=== PATIENT | female | born 1930 ===

== ENCOUNTER 2021-12-30 11:10 | Emergency (ER) | payer OTHER ==
[~2021-12-30] VITALS: Ht 147.3 cm; Wt 38.6 kg
[~2021-12-30 11:10] MED LIST: LIPO-FLAVONOID1 EACH PO
[2021-12-30] MEDS ORDERED: BENZONATATE150 MG PO (11:34)
[2021-12-30] MEDS ORDERED: COZAAR50 MG PO (11:34)
[2021-12-30] MEDS ORDERED: LEVOXYL100 MCG (11:34)
[2021-12-30] MEDS ORDERED: ZYRTEC10 MG PO (20:05)
[2021-12-30] MEDS ORDERED: TUSSIN DM MAX118 ML PO (20:05)
[2021-12-30] MEDS ORDERED: FLONASE16 GM NASAL (20:05)
[2021-12-30] MEDS ORDERED: MEDROLPACK PO (20:05)
== END 2021-12-30 20:39 | disposition home or self-care (01) ==
LOC: ER 11:10
DX: E87.1 Hypo-osmolality and hyponatremia (principal); J45.909 Unspecified asthma, uncomplicated; J90 Pleural effusion, not elsewhere classified; Z20.822 Contact with and (suspected) exposure to COVID-19; I10 Essential (primary) hypertension; E03.9 Hypothyroidism, unspecified; M19.90 Unspecified osteoarthritis, unspecified site; H40.9 Unspecified glaucoma

== ENCOUNTER 2022-08-11 11:22 | Inpatient (IN) | payer OTHER ==
[~2022-08-11] VITALS: Ht 149.9 cm; Wt 44.5 kg
[~2022-08-11 11:22] MED LIST changes: +BENZONATATE150 MG PO; +COZAAR50 MG PO; +FLONASE16 GM NASAL; +LEVOXYL100 MCG; +MEDROLPACK PO; +TUSSIN DM MAX118 ML PO; +ZYRTEC10 MG PO
--- NOTE | 2022-08-11 11:34 | NUR ---
SE RECIBE PTE ALERTA Y ORIENTADA EN AMBULANCIA. PARAMEDICOS REFIEREN TRAER PTE POR TRAUMA EN PIERNA LT POR CAIDA HACE [address] MARRERO
--- NOTE | 2022-08-11 12:15 | NUR ---
SE ORIENTA PTE SOBRE TX A SEGUIR, EL CUAL REFIERE ENTENDER. SE COLECTAN MUESTRAS Y SE CANALIZA PTE UTILIZANDO MEDIDAS ASEPTICAS. SE INSERTA HERNÁNDEZ CATETER #16 UTILIZANDO MEDIDAS ESTERIL.
== END 2022-08-16 16:45 | DRG 481 ==
LOC: ER 11:22 → SURH 18:56
PROVIDERS: Orthopaedic Surgery; ADMIT Internal Medicine; ATTEND Internal Medicine
PROC: 30233N1 Transfusion of Nonautologous Red Blood Cells into Peripheral Vein, Percutaneous Approach (ICD-10-PCS; 2022-08-13)
PROC: 0QUC0KZ Supplement Left Lower Femur with Nonautologous Tissue Substitute, Open Approach (ICD-10-PCS; 2022-08-14)
PROC: 0QSC04Z Reposition Left Lower Femur with Internal Fixation Device, Open Approach (ICD-10-PCS; principal; 2022-08-14 07:00)
PROC: B24BYZZ Ultrasonography of Heart with Aorta using Other Contrast (ICD-10-PCS; 2022-08-15)
DX: S72.452A Displaced supracondylar fracture without intracondylar extension of lower end of left femur, initial encounter for closed fracture (principal); D62 Acute posthemorrhagic anemia; M97.12XA Periprosthetic fracture around internal prosthetic left knee joint, initial encounter; E87.1 Hypo-osmolality and hyponatremia; I50.22 Chronic systolic (congestive) heart failure; I11.0 Hypertensive heart disease with heart failure; E03.9 Hypothyroidism, unspecified

== ENCOUNTER → 2022-09-20 | Outpatient (CLI) | payer OTHER | END | disposition home or self-care (01) | LOC: RAD 11:24 | PROVIDERS: ATTEND Orthopaedic Surgery | DX: S72.462D Displaced supracondylar fracture with intracondylar extension of lower end of left femur, subsequent encounter for closed fracture with routine healing (principal); M97.12XD Periprosthetic fracture around internal prosthetic left knee joint, subsequent encounter ==

== ENCOUNTER 2022-09-30 13:11 | Outpatient (CLI) | payer OTHER | END 2022-09-30 13:12 | disposition home or self-care (01) | LOC: NUCLEAR 13:11 | PROVIDERS: ATTEND Orthopaedic Surgery | DX: M81.0 Age-related osteoporosis without current pathological fracture (principal) ==